=== PATIENT | female | born 1950 | race Caucasian/White ===

== ENCOUNTER → 2020-02-04 15:15 | Outpatient (BNVA) | payer OTHER, SELFPAY | PROVIDERS: Family Provider Family Medicine; PCP Family Medicine; Visit Provider Emergency Medicine | DX: R06.02 Shortness of breath (principal); F17.200 Nicotine dependence, unspecified, uncomplicated; E78.5 Hyperlipidemia, unspecified; R53.83 Other fatigue; I10 Essential (primary) hypertension; I70.90 Unspecified atherosclerosis | CPT/HCPCS: 71046; 80053; 80061; 82652; 83880; 84443; 85025 ==

== ENCOUNTER → 2020-10-14 11:43 | Outpatient (BNVA) | payer OTHER, SELFPAY | PROVIDERS: Family Provider Family Medicine; PCP Family Medicine; Visit Provider Emergency Medicine | DX: N23 Unspecified renal colic (principal); N28.1 Cyst of kidney, acquired | CPT/HCPCS: 81000 ==

== ENCOUNTER 2020-11-02 10:02 | Outpatient (CLI) | payer MEDICARE, SELFPAY ==
--- NOTE | 2020-11-02 10:15 | US_ITS ---
WS: [id number] RENAL ULTRASOUND HISTORY: N28.1 - Cyst of kidney, acquired COMPARISON: None available. TECHNIQUE: 2-D and color Doppler imaging of the kidney submitted. Right kidney: 10.4 cm x 4.9 cm x 3.7 cm. Normal size kidney. Cortical cyst measuring 1.1 x 0.9 x 1.0 cm from the posterior mid kidney. No cristiane d mass. Left kidney: 10.4 cm x 5.5 cm x 4.9 cm. Normal echogenicity with no hydronephrosis or mass. Aorta: Mild atherosclerosis with no aneurysm. Urinary Bladder: Normal distention. US/US renal BI* [id number] IMPRESSION: 1. No hydronephrosis or solid mass. 2. Simple cyst posterior RIGHT kidney.
== END 2020-11-02 10:03 | disposition home or self-care (01) ==
LOC: US 10:05
PROVIDERS: PCP Emergency Medicine; Visit Provider Emergency Medicine
DX: N28.1 Cyst of kidney, acquired (principal)
CPT/HCPCS: 76770

== ENCOUNTER → 2021-08-24 11:46 | Outpatient (BNVA) | payer MEDICARE, SELFPAY | PROVIDERS: PCP Emergency Medicine; Visit Provider Nurse Practitioner Family | DX: Z20.822 Contact with and (suspected) exposure to COVID-19 (principal) | CPT/HCPCS: 87635 ==

== ENCOUNTER → 2021-08-28 15:18 | Outpatient (BNVA) | payer MEDICARE, SELFPAY | PROVIDERS: PCP Emergency Medicine; Visit Provider Nurse Practitioner Family | DX: J04.0 Acute laryngitis (principal); K57.92 Diverticulitis of intestine, part unspecified, without perforation or abscess without bleeding; K59.00 Constipation, unspecified; R39.9 Unspecified symptoms and signs involving the genitourinary system | CPT/HCPCS: 81000 ==

== ENCOUNTER → 2023-04-18 14:21 | Outpatient (BNVA) | payer MEDICARE, MEDICAID, SELFPAY | PROVIDERS: PCP Emergency Medicine; Visit Provider Emergency Medicine | DX: M54.9 Dorsalgia, unspecified (principal) | CPT/HCPCS: 81000; 87086 ==